=== PATIENT | female | born 1980 | race Caucasian/White ===

== ENCOUNTER 2019-09-16 14:57 | Emergency (ER) | payer OTHER, SELFPAY ==
[2019-09-16 14:58] VITALS: BP 123/75; PULSE 77; RESP 16; TEMP 36.5; O2SAT 99; BMI 30.7
--- NOTE | 2019-09-16 15:25 | ED.DCSUM_ITS ---
History of Present Illness Chief Complaint: Asthma Informant: Patient Onset: Weeks - 1.5 Activity at onset: Light Activity Timing: Waxes and wanes Quality: Wheezing Current Severity: Mild Maximum Severity: Moderate Worsened by: Exertion Relieved by: Albuterol Associated Symptoms: Negative for: Cough, Fever, Rhinorrhea, Sore throat, Sweats Chest Pain: Tightness Narrative: 39-year-old female with asthma has had increased asthma symptoms lately but has not felt like she had a cold or any other acute illness. She has been using her albuterol inhaler it is helping some but she is using it a lot and looking for something else for relief. Prior similar symptoms: Yes - asthma - Past Medical History (1) Asthma Status: Chronic Past Medical History - Allergies and Home Meds Allergies/Adverse Reactions: Allergies shellfish derived Allergy (Verified 09/16/19 14:58) Hives Primary Care Physician: Mario Alberto Beyer MD [Primary Care Provider] - Lives: With Family Smoking Status: Never smoker Review of Systems General: Denies: Chills, Fever Cardiovascular: Reports: Chest pain. Denies: Palpitations Respiratory: Reports: Dyspnea, Dyspnea on exertion. Denies: Cough Musculoskeletal: Denies: Swelling, Extremity Pain Physical Exam Vital Signs/Narrative: Vital Signs Temp Pulse Resp BP Pulse Ox 09/16/19 14:58 97.7 F L 77 16 123/75 H 99 Inital Vital Signs reviewed: Yes General: Well nourished, Well developed, No Acute Distress - Well-appearing Head: Normocephalic, Atraumatic Eyes: Perrl, EOMI ENT: Moist mucous membranes, No rhinorrhea Neck: Supple, Nontender Cardiovascular: Regular rate, Regular rhythm, No murmurs Respiratory: No distress, Chest nontender, Wheezing - Very slight expiratory wheezes. Negative for: Rales, Rhonchi Extremities: Nontender, No edema Neurological: Alert, Oriented x3, Cranial nerves II-XII grossly intact, Normal Strength, Normal Sensation, Normal Gait Psychological: Normal affect, Normal Mood Diagnostic/Tx/Re-eval - Medical Decision Making Patient feels better after a duo nebulizer treatment. She was started on prednisone and given a prescription for an additional 5-day course, she has albuterol at home and is comfortable with this overall plan. Do not suspect cardiac involvement here. ED Disposition - Plan for ED Patient: Disposition: Home or Assisted Living Diagnosis: Acute asthma exacerbation Instructions: ASTHMA, Acute (Adult) Prescriptions: Prednisone [Deltasone] 40 mg PO DAILY #10 tab Transmission Status: Pending to [facility]/pharmacy #[id number] Referrals: Mario Alberto Beyer MD [Primary Care Provider] - 1 Week if not improving
[2019-09-16] MEDS: Ipratropium/Albuterol Sulfate 3 ML AMPUL.NEB INHALATION (15:41)
[2019-09-16 15:43] VITALS: PULSE 80; RESP 16
[2019-09-16] MEDS: predniSONE 20 MG Tablet 40 MG PO (15:51)
[2019-09-16 15:54] VITALS: O2SAT 97
== END 2019-09-16 15:59 | disposition home or self-care (01) ==
PROVIDERS: Emergency Provider Emergency Medicine; Family Provider Family Medicine; PCP Family Medicine
DX: J45.901 Unspecified asthma with (acute) exacerbation (principal); Z79.899 Other long term (current) drug therapy
CPT/HCPCS: 94640; 99281; 99283

== ENCOUNTER 2020-09-02 18:46 | Emergency (ER) | payer OTHER, SELFPAY ==
[2020-09-02 18:46] VITALS: BP 149/82; PULSE 115; RESP 16; TEMP 36.6; O2SAT 98; BMI 31.8
--- NOTE | 2020-09-02 19:11 | ED.DCSUM_ITS ---
History of Present Illness Chief Complaint: Shortness of Breath Narrative: Patient is a 39-year-old female who presents with shortness of breath. She complains of shortness of breath for the last couple of weeks and states she has been on and off of prednisone. However she states her asthma always flares this time of the year. Her daughter tested positive for Covid. Around August 26 she had fever congestion rhinorrhea and cough. She tested negative for Covid at that time. She was improving. About 2 days ago she developed worsening shortness of breath. She complains of recurrent nasal congestion and runny nose. She is not currently coughing. She has had no fever in the last 2 days with the recurrence of her other symptoms. She denies any pain. No vomiting or diarrhea. Past Medical History - Allergies and Home Meds Allergies/Adverse Reactions: Allergies shellfish derived Allergy (Verified 09/02/20 18:48) Hives Primary Care Physician: Mario Alberto Beyer MD [Primary Care Provider] - Past Medical History: - - Asthma Smoking Status: Never smoker Review of Systems All systems negative except as indicated General: Reports: Fever Eyes: Denies: Visual changes - bilaterally ENT: Reports: Rhinorrhea, - - Ingestion, rhinorrhea. Denies: Bilateral ear pain Cardiovascular: Denies: Chest pain Respiratory: Reports: Dyspnea, Cough Gastrointestinal: Denies: Abdominal pain, Nausea, Vomiting Musculoskeletal: Denies: Myalgias, Arthralgias, Extremity Pain Skin: Denies: Rash Neurological: Denies: Headache Allergy: Denies: Uticaria Physical Exam Vital Signs/Narrative: Vital Signs Temp Pulse Resp BP Pulse Ox 09/02/20 18:46 97.8 F 115 H 16 149/82 H 98 Inital Vital Signs reviewed: Yes General: Well nourished Head: Normocephalic Eyes: EOMI ENT: Moist mucous membranes Neck: Supple Cardiovascular: Regular rhythm, Tachycardia Respiratory: No distress, CTA bilaterally. Negative for: Rales, Rhonchi, Wheezing Abdomen: Soft, Nontender Extremities: Nontender, No edema Skin: Normal color Neurological: Alert Psychological: Normal affect Diagnostic/Tx/Re-eval Impressions Chest X-Ray 09/02/20 19:30 IMPRESSION: Findings suspicious for early changes of Covid 19 pneumonia in the right lower lobe. However clinical correlation is recommended Electronically Signed: Eliseo Boykin MD at 19:49 EST , Service support , 09/02/20 19:30 Chest 1 View (Portable) [RAD] Stat 09/02/20 19:30 Mucosa - Nasopharyngeal SARS-CoV-2 Antigen (Rapid) - Final SARS-CoV-2 (COVID 19) Laboratory Results 09/02/20 09/02/20 09/02/20 19:30 19:30 19:30 WBC 7.2 RBC 4.70 Hgb 11.0 L Hct 35.9 L MCV 76.4 L MCH 23.4 L MCHC 30.6 L RDW Std Deviation 43.4 RDW Coeff of Pilo 15.7 H Plt Count 329 MPV 10.3 Immature Gran % (Auto) 0.700 Neut % (Auto) 83.9 H Lymph % (Auto) 10.5 L [place] % (Auto) 4.6 Eos % (Auto) 0.0 Baso % (Auto) 0.3 Absolute Neuts (auto) 6.0 Absolute Lymphs (auto) 0.75 L Nucleated RBC % 0 D-Dimer Quant (PE/DVT) 0.41 Sodium Cancelled Potassium Cancelled Chloride Cancelled Carbon Dioxide Cancelled Anion Gap Cancelled BUN Cancelled Creatinine Cancelled Estim Creat Clear Calc Cancelled Est GFR (MDRD) Af Amer Cancelled Est GFR (MDRD) Non-Af Cancelled BUN/Creatinine Ratio Cancelled Glucose Cancelled Calcium Cancelled Troponin I Cancelled 09/02/20 20:10 WBC RBC Hgb Hct MCV MCH MCHC RDW Std Deviation RDW Coeff of [place] Plt Count MPV Immature Gran % (Auto) Neut % (Auto) Lymph % (Auto) [place] % (Auto) Eos % (Auto) Baso % (Auto) Absolute Neuts (auto) Absolute Lymphs (auto) Nucleated RBC % D-Dimer Quant (PE/DVT) Sodium 140 Potassium 4.1 Chloride 110 H Carbon Dioxide 24.0 Anion Gap 6 BUN 11 Creatinine 0.95 Estim Creat Clear Calc 83.09 Est GFR (MDRD) Af Amer 84 Est GFR (MDRD) Non-Af 69 BUN/Creatinine Ratio 11.5 Glucose 121 H Calcium 8.3 L Troponin I < 0.015 - Medical Decision Making One-view portable chest x-ray on my rotation shows right-sided infiltrate. This was read by radiology as possible early changes of COVID-19. Patient's Covid antigen test returned positive. Serum labs are unremarkable with a negative D- dimer. Patient will be prescribed Levaquin for possible superimposed bacterial pneumonia. Was advised on signs and symptoms to monitor for and the patient was discharged. ED Disposition - Plan for ED Patient: Disposition: Home or Assisted Living Diagnosis: Pneumonia due to COVID-19 virus Instructions: Coronavirus Disease 2019 (COVID-19): Overview Prescriptions: Levofloxacin [Levaquin] 750 mg PO DAILY #6 tab Prescription Printed Referrals: Mario Alberto Beyer MD [Primary Care Provider] -
--- NOTE | 2020-09-02 19:30 | RAD_ITS ---
STUDY: X-RAY CHEST REASON FOR EXAM: Female, 39 years old. SOB, CHILD WAS RECENTLY COVID + TECHNIQUE: AP portable COMPARISON: 08/05/2017 FINDINGS: There appears to be very mild asymmetric interstitial thickening and slightly increased density in the right lower lobe possibly representing early changes of acute inflammatory disease.. There is no demonstrated pleural abnormality. Normal size heart. Normal mediastinum and katharine. Normal visualized pulmonary arteries. Normal visualized aortic arch and descending thoracic aorta. Normal visualized thoracic spine. Normal visualized ribs, clavicles, and shoulders. There is no demonstrated abnormality of the visualized soft tissue structures of the upper abdomen. RAD/Chest 1 View (Portable) IMPRESSION: Findings suspicious for early changes of Covid 19 pneumonia in the right lower lobe. However clinical correlation is recommended Electronically Signed: Eliseo Boykin MD at 19:49 EST , Service support ,
[2020-09-02 19:34] VITALS: BP 125/84; PULSE 77; RESP 16; O2SAT 98
[2020-09-02] MEDS: 0.9% Normal Saline 1,000 ML 999 ML IV (19:34)
[2020-09-02 19:42] LABS: Absolute Lymphocyte Count 0.75 X10^3/uL (0.83-4.51); Basophil# 0.02 X10^3/uL; Basophil% 0.3 % (0-1); Hematocrit 35.9 % (37-47); Lymphocyte # 0.75 X10^3/ul (4.0); Lymphocyte % 10.5 % (19-41); Mean Corp Hgb Conc 30.6 g/dL (32-36); Mean Corpuscular Hgb 23.4 pg (27.0-32.0); Mean Corpuscular Volume 76.4 fL (81-99); Mean Platelet Vol. 10.3 fl (6.2-12.0); Monocyte# 0.33 X10^3/uL; Monocyte% 4.6 % (0-10); NRBC Flagged by Analyzer 0 % (0-5); Neutrophil # 6.02 X10^3/uL (2.7-7.7); Neutrophil % 83.9 % (47-70); Platelet Count 329 K/mm3 (150-450); RBC Distribution Width CV 15.7 % (11.6-14.6); RBC Distribution Width SD 43.4 fl (35.1-43.9); White Blood Count 7.2 K/mm3 (4.4-11.0)
[2020-09-02 20:25] LABS: D-Dimer Quantitative (DVT/PE) 0.41 FEU/ug/m (0.27-0.49)
[2020-09-02 20:33] LABS: Anion Gap 6 (5-15); BUN 11 mg/dL (7-18); BUN/Creat Ratio 11.5 RATIO (10-20); Calcium,Total 8.3 mg/dL (8.5-10.1); Chloride 110 mmol/L (98-107); Creatinine, Serum 0.95 mg/dL (0.55-1.02); EST Glomerular Filtration Rate 69 mL/min (>60); Est Glom Filt Rate - Afr Amer 84 mL/min (>60); Estimated Creatinine Clearance 83.09 ml/min; Glucose 121 mg/dL (74-106); Potassium 4.1 mmol/L (3.5-5.1); Sodium Level 140 mmol/L (136-145)
[2020-09-02] MEDS: levoFLOXacin 750 MG Tablet PO (20:50)
[2020-09-02 20:53] VITALS: BP 131/88; PULSE 85; RESP 18; O2SAT 99
== END 2020-09-02 20:54 | disposition home or self-care (01) ==
PROVIDERS: Emergency Provider Emergency Medicine; PCP Family Medicine
DX: U07.1 COVID-19 (principal); J12.89 Other viral pneumonia; J45.909 Unspecified asthma, uncomplicated; Z79.899 Other long term (current) drug therapy
CPT/HCPCS: 36415; 71045; 80048; 84484; 85025; 85379; 87426; 93005; 96360; 99285; J7030; A4216

== ENCOUNTER 2021-09-21 13:35 | Emergency (ER) | payer OTHER, SELFPAY ==
[2021-09-21 13:35] VITALS: BP 171/88; PULSE 98; RESP 18; TEMP 35.3; O2SAT 96; BMI 32.5
[2021-09-21 14:14] VITALS: BP 171/88; PULSE 98; RESP 18; TEMP 35.3; O2SAT 96
[2021-09-21 14:15] VITALS: O2SAT 96
--- NOTE | 2021-09-21 14:37 | ED.VIS.DYS ---
HPI History of Present Illness Chief Complaint: Shortness of Breath Narrative Narrative: Patient presents with shortness of breath and symptoms of her asthma flare for the last 4 days. She states that she has a rescue inhaler but does not like to use it. On Tuesday, she felt mildly short of breath and has been using her steroid inhaler. She was in the emergency department with her last evening who tested positive for COVID. He was having symptoms for over 10 days. She states that she tested negative for COVID last week, but with him being positive yesterday, she was concerned about the increasing shortness of breath that she has been having. She did take a leftover 25 mg of prednisone today. She denies any fevers or chills or other symptoms. PFSH PFSH Home Medications albuterol sulfate [Ventolin HFA] 1 - 2 puff INHALATION Q4H PRN PRN #1 inhaler 07/06/15 [Rx Last Taken 09/06/16] loratadine [Claritin] 10 mg PO DAILY 09/06/16 [History Last Taken 09/06/16] omeprazole 10 mg PO DAILY 08/05/17 [History Last Taken Unknown] prednisone 40 mg PO DAILY #10 tab 09/16/19 [Rx Last Taken Unknown] levofloxacin 750 mg PO DAILY #6 tab 09/02/20 [Rx Last Taken Unknown] prednisone 40 mg PO DAILY #10 tab 09/21/21 [Rx Last Taken Unknown] Allergy/AdvReac Type Severity Reaction Status Date / Time bacitracin Allergy Rash Verified 09/21/21 13:37 [From Neosporin ([id number])] neomycin Allergy Rash Verified 09/21/21 13:37 [From Neosporin ([id number])] polymyxin B Allergy Rash Verified 09/21/21 13:37 [From Neosporin ([id number])] shellfish derived Allergy Hives Verified 09/21/21 13:37 Social History Smoking Status: Never smoker ROS ROS ED ROS Narrative Constitutional: No fever, no chills. HEENT: No sore throat. No neck pain. No loss of vision. No rhinorrhea. Cardiovascular: No chest pain. No palpitations. No pedal edema. Respiratory: No cough, positive shortness of breath. Abdominal: No abdominal pain. No nausea. No vomiting. Genitourinary: No dysuria. No hematuria. Musculoskeletal: No myalgias. No arthralgias. Neurologic: No headaches. No dizziness. No lightheadedness. Skin: No rash. No change in color. Psychiatric: No depression. No anxiety. EXAM Physical Exam Narrative Exam Narrative: Afebrile. Vital signs noted. HEENT: Normocephalic. Atraumatic. PERRL, EOMI. Neck soft and supple. No point tenderness or step off. Cardiovascular: Regular rate and rhythm. No murmurs, rubs, or gallops appreciated. Respiratory: No tachypnea. Lungs clear to auscultation bilaterally. Gastrointestinal: Abdomen soft, nontender, with normoactive bowel sounds. No rebound or guarding. Neurological: Awake. Alert. Nonfocal, nonlateralizing. Skin: No rash. Normal color. No pallor. Musculoskeletal: No pedal edema. Full range of motion extremities. Const Vital Signs: 09/21/21 13:35 09/21/21 14:14 09/21/21 14:15 Temperature 95.6 F L 95.6 F L Temperature Source Temporal Temporal Pulse Rate 98 98 Respiratory Rate 18 18 Respiratory Effort Normal Non-Labored Respiratory Depth Normal Respiratory Pattern Normal Blood Pressure 171/88 H 171/88 H Blood Pressure Mean 115 115 Pulse Ox 96 96 Oxygen Delivery Method Room Air Room Air Room Air MDM MDM MDM Narrative Medical decision making narrative: Patient was swabbed for COVID-19 and is negative. Treatment will continue to be symptomatic. I told her to use her rescue inhaler every 4-6 hours as needed especially over the next few days. She states she was feeling improved with the prednisone that she took today. I will write her a burst for 5 days of 40 mg. She states that this usually knocks it out with the use of her inhaler. Of note, she did have an elevated blood pressure of 171/88. She is asymptomatic with this in the sense that she is not having any chest pain or headaches. She was told to keep a log of her blood pressures and follow-up with her primary care physician. I feel she can be discharged safely home with follow-up. Return instructions to the emergency department were reviewed. Disposition is discharged home in stable condition. Discharge Plan Triage Chief Complaint: Shortness of Breath ED Provider: Reodica,Marcello Dx/Rx/DC Orders Clinical Impression: Asthma Instructions: ED Asthma, Acute (Adult) Prescriptions: New prednisone 20 mg tablet 40 mg PO DAILY Qty: 10 RF: 0 No Action albuterol sulfate [Ventolin HFA] 1 INHALER inhaler 1 - 2 puff inhalation Q4H PRN PRN (Reason: Wheezing) Qty: 1 RF: 0 loratadine [Allergy Relief (loratadine)] 10 MG tablet 10 mg PO DAILY RF: 0 omeprazole 10 MG capsule 10 mg PO DAILY RF: 0 prednisone 20 MG tablet 40 mg PO DAILY Qty: 10 RF: 0 levofloxacin 750 MG tablet 750 mg PO DAILY Qty: 6 RF: 0 Primary Care Provider: Mario Alberto Beyer Referrals: Mario Alberto Beyer MD [Primary Care Provider] - 09/25/21 Disposition Disposition: Home, Self Care
[2021-09-21 14:49] VITALS: BP 118/64; PULSE 72; RESP 20; O2SAT 97
--- NOTE | 2021-09-21 14:49 | ED.RN ---
THIS NURSE REVIEWED D/C INSTRUCTIONS WITH PT. PT VERBALIZED UNDERSTANDING OF INSTRUCTIONS. PT DENIES FURTHER NEEDS OR QUESTIONS AT THIS TIME. PT AMBULATES FROM ROOM ON OWN WITHOUT ASSISTANCE FROM STAFF
== END 2021-09-21 14:50 | disposition home or self-care (01) ==
PROVIDERS: Emergency Provider Emergency Medicine; PCP Family Medicine; Visit Provider Emergency Medicine
DX: J45.909 Unspecified asthma, uncomplicated (principal); Z20.822 Contact with and (suspected) exposure to COVID-19
CPT/HCPCS: 87426; 99282